=== PATIENT | female | born 1945 | race Caucasian/White ===

== ENCOUNTER 2021-01-24 22:38 | Emergency (ER) | payer MEDICARE, BC ==
[2021-01-24 23:57] LABS: CHLORIDE,CL 99 mmol/L (98-107); SODIUM,NA 139 mmol/L (136-145)
[2021-01-25] MEDS ORDERED: LORazepam 0.5 MG Tab PO ONE (00:06)
[2021-01-25] MEDS ORDERED: Potassium Chloride 10% 20 MEQ/15 ML Soln 15 ML UD Cup PO ONE (00:07)
--- NOTE | 2021-01-25 00:07 | EDM.PDOC ---
ED HPI GENERAL MEDICAL PROBLEM - General Chief Complaint: Cardiovascular Problem Stated Complaint: HIGH BP Time Seen by Provider: 01/24/21 22:45 Source of Information: Reports: Patient History Limitations: Reports: No Limitations - History of Present Illness INITIAL COMMENTS - FREE TEXT/NARRATIVE: Patient comes emergency department today from home with complaints of palpitations pressure in her head and elevated blood pressure. This patient on the daily checks her blood pressure anywhere from 4-15 times a day. She typically notes that her blood pressure fluctuates quite a bit throughout the day. She does have quite a bit of anxiety in the past. She has been taking her hydrochlorothiazide for her blood pressure. She noticed this morning her blood pressure was a little bit on the low side about 95 systolically. This evening while she was sitting watching TV and she was getting more concerned about the news and all of the social things that are going on in our society she felt like her heart was pounding a little bit stronger than normal not really fast. No irregularity. She felt some pressure in her head. She checked her blood pressure and it was initially 140 systolically. She did not feel that it was right so she continually checked her blood pressure repeatedly over the next 10 to 15 minutes and about 9-12 times in the next 10 to 15 minutes. Every time that she checked her blood pressure her blood pressure went up a little bit more she felt more of her sensation of the increased pounding sensation in her chest as well as the pressure in her head. He came quite concerned so she came to the emergency department. Upon arrival she has no chest pain or shortness of breath or difficulty breathing. She still has a little bit of a pounding sensation but she does not feel like her heart is too fast or too slow or irregular. No double vision. No headache. No visual acuity changes. No nausea no vomiting. No weakness dizziness lightheadedness. No syncope. No abdominal pain nausea or vomiting. No paresthesias of his upper or lower extremities. No change in the functionality of her upper or lower extremities. No hematuria dysuria or urinary frequency. No black or tarry stools. No Covid exposure no Covid symptoms. Does relate that she knows that she has quite a bit of anxiety and this could be a component of it but she is really worried about her blood pressure. 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 She is supposed to be taking a atorvastatin as prescribed by her primary care provider but she does not take it because she is worried about the possibility of side effects. Although she is never taken it to know if she has any side effects. - Related Data Allergies Allergy/AdvReac Type Severity Reaction Status Date / Time No Known Allergies Allergy Verified 01/24/21 22:44 Home Meds: Home Meds hydroCHLOROthiazide [Hydrochlorothiazide] 25 mg PO BEDTIME 01/24/21 [History] Past Medical History Cardiovascular History: Reports: Hypertension, Other (See Below) Other Cardiovascular History: palpatations Social & Family History - Family History Family Medical History: No Pertinent Family History - Tobacco Use Tobacco Use Status *Q: Never Tobacco User - Caffeine Use Caffeine Use: Reports: None - Recreational Drug Use Recreational Drug Use: No ED ROS GENERAL - Review of Systems Review Of Systems: Comprehensive ROS is negative, except as noted in HPI. ED EXAM, GENERAL - Physical Exam Exam: See Below Exam Limited By: No Limitations General Appearance: Alert, WD/WN, No Apparent Distress, Anxious (This patient is very anxious when I enter the room. She is constantly talking fidgeting moving rambling on with her speech.) Eye Exam: Bilateral Eye: EOMI, PERRL Ears: Normal External Exam. No: Normal TMs (Unable to visualize bilateral TMs as they are occluded with cerumen.) Nose: Normal Inspection Throat/Mouth: Normal Inspection Head: Atraumatic, Normocephalic Neck: Normal Inspection, Supple, Non-Tender, Full Range of Motion. No: Carotid Bruit Respiratory/Chest: No Respiratory Distress, Lungs Clear, Normal Breath Sounds, No Accessory Muscle Use, Chest Non-Tender Cardiovascular: Normal Peripheral Pulses, Regular Rate, Rhythm, No Murmur, No Rub, Tachycardia Peripheral Pulses: 2+: Radial (L), Radial (R), Posterior Tibial (L), Posterior Tibial (R), Dorsalis Pedis (L), Dorsalis Pedis (R) GI/Abdominal: Normal Bowel Sounds, Soft, Non-Tender (Female) Exam: Deferred Rectal (Female) Exam: Deferred Back Exam: Normal Inspection, Full Range of Motion Extremities: Normal Inspection, Normal Range of Motion, Non-Tender, No Pedal Edema, Normal Capillary Refill Neurological: Alert, Oriented, CN II-XII Intact, Normal Cognition, Normal Reflexes, No Motor/Sensory Deficits Psychiatric: Anxious Skin Exam: Warm, Dry, Intact, Normal Color, No Rash Lymphatic: No Adenopathy Course - Vital Signs Last Recorded V/S: Last Vital Signs Temp 97.3 F 01/24/21 22:40 Pulse 92 01/25/21 02:30 Resp 18 01/25/21 01:48 BP 166/98 H 01/25/21 02:30 Pulse Ox 99 01/24/21 22:40 - Orders/Labs/Meds Labs: Laboratory Tests 01/24/21 01/24/21 01/24/21 Range/Units 23:14 23:25 23:25 WBC 9.3 (4.0-10.0) x10^3/uL RBC 4.88 (4.00-5.50) x10^6/uL Hgb 14.7 (12.0-16.0) g/dL Hct 43.0 (33.0-47.0) % MCV 88.1 (78.0-93.0) fL MCH 30.1 (26.0-32.0) pg MCHC 34.2 (32.0-36.0) g/dL RDW Coeff of [place] 13.4 (10.0-15.0) % Plt Count 300 (130-400) x10^3/uL Neut % (Auto) 40.1 L (50.0-80.0) % Lymph % (Auto) 41.9 (25.0-50.0) % [place] % (Auto) 13.4 H (2.0-11.0) % Eos % (Auto) 4.2 H (0.0-4.0) % Baso % (Auto) 0.4 (0.2-1.2) % Sodium 139 (136-145) mmol/L Potassium 3.0 L (3.5-5.1) mmol/L Chloride 99 (98-107) mmol/L Carbon Dioxide 31 (21-32) mmol/L Anion Gap 12.0 (5-15) mmol/L BUN 16 (7-18) mg/dL Creatinine 0.8 (0.55-1.02) mg/dL Est Cr Clr Drug Dosing 49.53 mL/min Estimated GFR (MDRD) > 60 Glucose 136 H (70-99) mg/dL Calcium 9.3 (8.5-10.1) mg/dL Corrected Calcium 9.54 (8.5-10.1) mg/dL Total Bilirubin 0.3 (0.2-1.0) mg/dL AST 29 (15-37) U/L ALT 43 (14-59) U/L Alkaline Phosphatase 114 (46-116) U/L Troponin I High Sens 6 (<=51) ng/L Total Protein 8.2 (6.4-8.2) g/dL Albumin 3.7 (3.4-5.0) g/dL Globulin 4.5 Albumin/Globulin Ratio 0.82 Urine Color Light yellow (YELLOW) Urine Appearance Clear (CLEAR) Urine pH 7.5 (5.0-8.0) Ur Specific [place] 1.015 Urine Protein Negative (NEGATIVE) mg/dL Urine Glucose (UA) Negative (NEGATIVE) mg/dL Urine Ketones Negative (NEGATIVE) mg/dL Urine Occult Blood Negative (NEGATIVE) Urine Nitrite Negative (NEGATIVE) Urine Bilirubin Negative (NEGATIVE) Urine Urobilinogen 0.2 (0.2) EU/dL Ur Leukocyte Esterase Negative (NEGATIVE) Meds: Medications Discontinued Medications Generic Name Dose Route Start Last Admin Trade Name Neri PRN Reason Stop Dose Admin Clonidine HCl 0.1 mg 01/25/21 01:53 01/25/21 01:58 Clonidine 0.1 Mg Tab PO 01/25/21 01:54 0.1 mg ONETIME ONE Administration Clonidine HCl Confirm 01/25/21 02:14 Clonidine 0.1 Mg Tab Administered 01/25/21 02:15 Dose 0.1 mg .ROUTE .STK-MED ONE Lorazepam 0.5 mg 01/25/21 00:06 01/25/21 00:20 Lorazepam 0.5 Mg Tab PO 01/25/21 00:07 0.5 mg ONETIME ONE Administration Potassium Chloride 40 meq 01/25/21 00:07 01/25/21 00:18 Potassium Chloride 10% 20 Meq/15 Ml Soln 15 Ml Ud Cup PO 01/25/21 00:08 40 meq ONETIME ONE Administration - Re-Assessments/Exams Free Text/Narrative Re-Assessment/Exam: 01/25/21 03:24 EKG was completed that showed normal sinus rhythm without ST elevation or depression when reviewed extemporaneously by myself. Labs are drawn. The patient is quite anxious. She was given some lorazepam 0.5 mg orally. She did calm down quite a bit after this and states that she feels quite a bit better. Her laboratory evaluation is rather unremarkable. Kidney function is normal. Troponin is normal. Urinalysis is negative for protein ketones nitrites or leukocytes. After the Ativan the patient is racing pounding heart sensation is resolved as well as the pressure in her head. Repeat neurological exam is unremarkable. Her blood pressure maintained to be still elevated over 180 systolically and 110 diastolically. It is rather interesting that this patient has had very well controlled blood pressure over the past couple of weeks with a actually almost low blood pressure this morning of 95 systolically. She has had no recent change in her medication she has not missed any of her medication she really has no other symptomology. Blood pressure spike tonight could be just an isolated situation although it is very high and I do not feel comfortable discharging her home without managing it a little bit more. Was given clonidine 0.1 mg orally. Her blood pressure improved to 160 systolically. She continues to be asymptomatic. Tomorrow is Thursday and it may be difficult for her to get into her clinic to recheck her blood pressure tomorrow. I will have her contact me on my cell phone tomorrow after she checks her blood pressure in the morning and let me know what her symptoms are and will create a plan at that time for management. She was hypokalemic tonight as well which is most likely due to her chronic hydrochlorothiazide administration without being on an KIRAN inhibitor. If she continues to be hypertensive in the morning we will start her on an KIRAN inhibitor. She was given 40 mEq of potassium orally in the emergency department. Discharge instructions as below are explained to the patient she was comfortable with this plan and her questions were answered. Departure - Departure Time of Disposition: 01:54 Disposition: Home, Self-Care 01 Clinical Impression: Hypokalemia Hypertension Qualifiers: Hypertension type: essential hypertension Qualified Code(s): I10 - Essential (primary) hypertension Instructions: Hypertension, Adult, [id number] Referrals: Kiki Santana MD [Primary Care Provider] - Forms: ED Department Discharge Additional Instructions: Home rest tonight. Continue previous medications. Call me in the morning [phone] and tell me your symptoms if any and let me know what your blood pressure looks like. At that time we will create a plan to address if we need. Make sure and continue your banana every day and we will discuss potassium supplementation tomorrow depends on the plan. Return to the ED if new or worsening symptoms. Sepsis Event Note (ED) - Evaluation Sepsis Screening Result: No Definite Risk - Focused Exam Vital Signs: Vital Signs Temp Pulse Resp BP BP Pulse Ox 01/25/21 02:30 92 166/98 H 01/25/21 01:58 188/113 H 01/25/21 01:48 99 18 185/112 H 01/25/21 01:25 98 9 L 162/101 H 01/25/21 00:04 106 H 198/139 H 01/25/21 00:00 106 H 10 L 190/92 H 01/24/21 23:55 98 19 198/139 H 01/24/21 22:40 97.3 F 109 H 16 200/117 H 99
--- NOTE | 2021-01-25 00:08 | PCM.EKG ---
#1 Interpretation EKG Date: 01/25/21 Time: 23:29 Rhythm: NSR Rate (Beats/Min): 92 [place]: Normal P-Wave: Present QRS: Normal ST-T: Normal QT: Normal Comparison: No Change
[2021-01-25] MEDS ORDERED: cloNIDine 0.1 MG Tab PO ONE (01:53)
[2021-01-25] MEDS ORDERED: cloNIDine 0.1 MG Tab ONE (02:14)
== END 2021-01-25 02:33 | disposition home or self-care (01) ==
LOC: VM.ED 22:38
DX: I10 Essential (primary) hypertension (principal); E87.6 Hypokalemia; Z79.899 Other long term (current) drug therapy
CPT/HCPCS: 36415; 80053; 81003; 84484; 85025; 93005; 99284; 99285-25; A9270-GY

== ENCOUNTER 2021-08-07 15:13 | Emergency (ER) | payer MEDICARE, BC ==
--- NOTE | 2021-08-07 15:55 | EDM.PDOC ---
ED HPI GENERAL MEDICAL PROBLEM - General Stated Complaint: HIGH BP Time Seen by Provider: 08/07/21 15:43 Source of Information: Reports: Patient - History of Present Illness INITIAL COMMENTS - FREE TEXT/NARRATIVE: Deepali is a 75 y/o female who was sent to the ER with elevated BP. She reports that the clinic was not calling her back and she was concerned about her BP so she came to. Reports that her BP has been going up and then it crashes down. Has been on Losartan 50mg per day but then has decreased it to to 37.5mg and then 25mg daily. She feels the med make her BP higher. - Related Data Allergies Allergy/AdvReac Type Severity Reaction Status Date / Time No Known Allergies Allergy Verified 08/07/21 15:57 Home Meds: Home Meds hydroCHLOROthiazide [Hydrochlorothiazide] 25 mg PO BEDTIME 01/24/21 [History] Losartan [Cozaar] 37.5 mg PO DAILY 08/07/21 [History] Past Medical History Cardiovascular History: Reports: Hypertension, Other (See Below) Other Cardiovascular History: palpatations Social & Family History - Family History Family Medical History: No Pertinent Family History - Caffeine Use Caffeine Use: Reports: None Review of Systems - Review of Systems Review Of Systems: See Below Constitutional: Reports: No Symptoms Eyes: Reports: No Symptoms Ears: Reports: No Symptoms Nose: Reports: No Symptoms Mouth/Throat: Reports: No Symptoms Respiratory: Reports: No Symptoms Cardiovascular: Reports: No Symptoms GI/Abdominal: Reports: No Symptoms Genitourinary: Reports: No Symptoms Musculoskeletal: Reports: No Symptoms Skin: Reports: No Symptoms Neurological: Reports: No Symptoms Psychiatric: Reports: No Symptoms ED EXAM, GENERAL - Physical Exam Exam: See Below Exam Limited By: No Limitations General Appearance: Alert, WD/WN, No Apparent Distress Ears: Hearing Grossly Normal Throat/Mouth: Normal Voice Head: Atraumatic, Normocephalic Neck: Supple Respiratory/Chest: No Respiratory Distress, Lungs Clear Cardiovascular: Normal Peripheral Pulses, Regular Rate, Rhythm, No Murmur GI/Abdominal: Normal Bowel Sounds, Soft (Female) Exam: Deferred Rectal (Female) Exam: Deferred Back Exam: Normal Inspection, Full Range of Motion Extremities: Normal Inspection, Normal Range of Motion, Normal Capillary Refill Neurological: Alert, Oriented, CN II-XII Intact, Normal Gait Psychiatric: Anxious Skin Exam: Warm, Dry, Intact, Normal Color Course - Vital Signs Text/Narrative:: 1543 The patient was seen by the MANAGER ENDOSCOPY. No labs or EKG done. She was given Clonidine 0.1mg po x1.Suspect anxiety component. 1630 BP 190s/100, Clondine was repeated. Discussed meds with patient and she reports to the MANAGER ENDOSCOPY that she refuses to take any other meds tonight for her BP. 1715 BP 165/98, offered Lorazepam but she declined. Encouraged her to discuss anti-anxiety meds with her PCP tomorrow. Written instructions were given and she left the ER in stable condition. Last Recorded V/S: Last Vital Signs Temp 37.0 C 08/07/21 15:20 Pulse 105 H 08/07/21 15:20 Resp 16 08/07/21 15:20 BP 191/116 H 08/07/21 16:34 Pulse Ox 99 08/07/21 15:20 - Orders/Labs/Meds Meds: Medications Discontinued Medications Generic Name Dose Route Start Last Admin Trade Name Neri PRAlfonso Reason Stop Dose Admin Clonidine HCl 0.1 mg 08/07/21 15:55 08/07/21 16:03 Clonidine 0.1 Mg Tab PO 08/07/21 15:56 0.1 mg ONETIME ONE Administration Clonidine HCl 0.1 mg 08/07/21 16:21 08/07/21 16:34 Clonidine 0.1 Mg Tab PO 08/07/21 16:22 0.1 mg ONETIME ONE Administration Departure - Departure Time of Disposition: 17:14 Disposition: Home, Self-Care 01 Condition: Good Clinical Impression: Anxiety HTN (hypertension) Qualifiers: Hypertension type: essential hypertension Qualified Code(s): I10 - Essential (primary) hypertension - Discharge Information Instructions: Form - Blood Pressure Record Sheet, Hypertension, Adult Referrals: Kiki Santana MD [Primary Care Provider] - Additional Instructions: -Rest -Do not check your blood pressure tonight -Resume meds as prescribed or discuss with Dr Feliciano tomorrow at your appt -Return to ER as needed Sepsis Event Note (ED) - Focused Exam Vital Signs: Vital Signs Temp Pulse Resp BP BP Pulse Ox 08/07/21 16:34 191/116 H 08/07/21 16:03 174/105 H 10/27/21 15:20 37.0 C 105 H 16 174/105 H 99 - Problem List & Annotations (1) Anxiety SNOMED Code(s): 60829700 Code(s): F41.9 - ANXIETY DISORDER, UNSPECIFIED Status: Acute (2) Hypertension SNOMED Code(s): 88084534 Code(s): I10 - ESSENTIAL (PRIMARY) HYPERTENSION Status: Acute Qualifiers: Hypertension type: essential hypertension Qualified Code(s): I10 - Essential (primary) hypertension - Problem List Review Problem List Initiated/Reviewed/Updated: Yes - Assessment/Plan Plan: See above
[2021-08-07] MEDS: cloNIDine 0.1 MG Tab PO ONE ×2 (16:03→16:34)
== END 2021-08-07 17:23 | disposition home or self-care (01) ==
LOC: VM.ED 15:13
DX: I10 Essential (primary) hypertension (principal); F41.9 Anxiety disorder, unspecified; Z79.899 Other long term (current) drug therapy
CPT/HCPCS: 99283; 99284; A9270-GY

== ENCOUNTER 2023-01-05 19:57 | Emergency (ER) | payer MEDICARE, BC | END 2023-01-05 21:01 | disposition home or self-care (01) | LOC: VM.ED 19:57 | DX: R04.0 Epistaxis (principal); I10 Essential (primary) hypertension; Z79.899 Other long term (current) drug therapy | CPT/HCPCS: 30901; 99283 ==